=== PATIENT | male | born 1955 | race Caucasian/White ===

== ENCOUNTER 2019-10-22 09:51 | Emergency (ER) | payer MEDICARE, OTHER ==
[2019-10-22] MEDS ORDERED: Albuterol/Ipratropium 3.0-0.5 MG/3 ML Neb Soln NEB PRN ×2 (11:03→11:17)
[2019-10-22] MEDS ORDERED: predniSONE 20 MG Tab PO ONE (11:19)
--- NOTE | 2019-10-22 11:54 | EDM.PDOC ---
ED HPI GENERAL MEDICAL PROBLEM - General Chief Complaint: Respiratory Problem Stated Complaint: asthma Time Seen by Provider: 10/22/19 10:05 Source of Information: Reports: Patient History Limitations: Reports: No Limitations - History of Present Illness INITIAL COMMENTS - FREE TEXT/NARRATIVE: PMH asthma, patient states he has has asthma issues x 1-2 weeks. Has been using his advair and albuterol with minimal relief. Denies any fever, CP, N/V/D, fever, chills. 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 Treatments - Related Data Allergies Allergy/AdvReac Type Severity Reaction Status Date / Time penicillin G Allergy Hives Verified 10/22/19 10:51 Home Meds: Home Meds Albuterol/Ipratropium [DuoNeb 3.0-0.5 MG/3 ML] 3 ml .XX Q6HR #1 neb 10/22/19 [Rx] lisinopriL [Lisinopril] 5 mg PO DAILY 10/22/19 [History] ED ROS GENERAL - Review of Systems Review Of Systems: See Below Constitutional: Reports: No Symptoms HEENT: Reports: No Symptoms Respiratory: Reports: Shortness of Breath, Wheezing Cardiovascular: Reports: No Symptoms, Dyspnea on Exertion Endocrine: Reports: No Symptoms GI/Abdominal: Reports: No Symptoms : Reports: No Symptoms Musculoskeletal: Reports: No Symptoms Skin: Reports: No Symptoms Neurological: Reports: No Symptoms Psychiatric: Reports: No Symptoms Hematologic/Lymphatic: Reports: No Symptoms Immunologic: Reports: No Symptoms ED EXAM, GENERAL - Physical Exam Exam: See Below Exam Limited By: No Limitations General Appearance: Alert, No Apparent Distress Nose: Normal Inspection Throat/Mouth: Normal Inspection Head: Atraumatic Neck: Full Range of Motion Respiratory/Chest: Decreased Breath Sounds, Wheezing Cardiovascular: Normal Peripheral Pulses, No JVD Peripheral Pulses: 3+: Radial (L), Radial (R) GI/Abdominal: Normal Bowel Sounds, Soft Back Exam: Normal Inspection Extremities: Normal Inspection, Normal Capillary Refill Neurological: Alert, Oriented, Normal Reflexes Psychiatric: Normal Affect, Normal Mood Skin Exam: Warm, Dry, Intact Lymphatic: No Adenopathy Course - Orders/Labs/Meds Orders: Active Orders 24 hr Category Date Time Status RT Aerosol Therapy [RC] ASDIRECTED Care 10/22/19 11:03 Active RT Aerosol Therapy [RC] ASDIRECTED Care 10/22/19 11:18 Active Chest 1V Frontal [CR] Stat Exams 10/22/19 11:03 Taken Albuterol/Ipratropium [DuoNeb 3.0-0.5 MG/3 ML] Med 10/22/19 11:17 Active 3 ml NEB Q4H PRN Medication Orders Albuterol/Ipratropium (Duoneb 3.0-0.5 Mg/3 Ml) 3 ml NEB Q4H PRN PRN Reason: Shortness of Breath Labs: Laboratory Tests 10/22/19 Range/Units 10:09 COVID-19 ([facility]) Negative Meds: Medications Generic Name Dose Route Start Last Admin Trade Name Freq PRN Reason Stop Dose Admin Albuterol/Ipratropium 3 ml 10/22/19 11:17 Duoneb 3.0-0.5 Mg/3 Ml NEB Q4H PRN Shortness of Breath Discontinued Medications Generic Name Dose Route Start Last Admin Trade Name Freq PRN Reason Stop Dose Admin Albuterol/Ipratropium 3 ml 10/22/19 11:03 Duoneb 3.0-0.5 Mg/3 Ml NEB Q4H PRN Shortness of Breath Prednisone 40 mg 10/22/19 11:19 Prednisone PO 10/22/19 11:20 ONETIME ONE Departure - Departure Time of Disposition: 12:25 Disposition: Home, Self-Care 01 Condition: Good Clinical Impression: Exacerbation of asthma Qualifiers: Asthma severity: moderate Asthma persistence: unspecified Qualified Code(s): J45.901 - Unspecified asthma with (acute) exacerbation - Discharge Information *PRESCRIPTION DRUG MONITORING PROGRAM REVIEWED*: No *COPY OF PRESCRIPTION DRUG MONITORING REPORT IN PATIENT ARMANDO: No Prescriptions: Albuterol/Ipratropium [DuoNeb 3.0-0.5 MG/3 ML] 3 ml .XX Q6HR #1 neb Instructions: Shortness of Breath, Adult, [id number] Additional Instructions: Use nebs as directed. Follow up with PMD as needed. Return to ED for any increased or new concerning symptoms. - My Orders Last 24 Hours: My Active Orders 10/22/19 11:03 RT Aerosol Therapy [RC] ASDIRECTED Chest 1V Frontal [CR] Stat 10/22/19 11:17 Albuterol/Ipratropium [DuoNeb 3.0-0.5 MG/3 ML] 3 ml NEB Q4H PRN 10/22/19 11:18 RT Aerosol Therapy [RC] ASDIRECTED - Assessment/Plan Last 24 Hours: My Active Orders 10/22/19 11:03 RT Aerosol Therapy [RC] ASDIRECTED Chest 1V Frontal [CR] Stat 10/22/19 11:17 Albuterol/Ipratropium [DuoNeb 3.0-0.5 MG/3 ML] 3 ml NEB Q4H PRN 10/22/19 11:18 RT Aerosol Therapy [RC] ASDIRECTED
[2019-10-22] MEDS ORDERED: Albuterol/Ipratropium 3.0-0.5 MG/3 ML Neb Soln ONE (12:00)
[2019-10-22] MEDS ORDERED: predniSONE 10 MG Tab ONE (12:00)
--- NOTE | 2019-10-23 12:20 | CR ---
DATE OF SERVICE: 10/22/2019 CLINICAL DATA: SOB. AP CHEST: Comparison is made to a prior exam dated 10/19/2006. The patient has taken a poor inspiration. The heart size is normal. The lungs are clear. No pneumothorax. No pleural effusions. No evidence of acute intrathoracic disease. [id number] [facility]
== END 2019-10-22 12:20 | disposition home or self-care (01) ==
LOC: LB.ED 09:51
DX: J45.901 Unspecified asthma with (acute) exacerbation (principal); Z20.828 Contact with and (suspected) exposure to other viral communicable diseases; Z88.0 Allergy status to penicillin
CPT/HCPCS: 71045; 99285; J7512; U0002; 99284; J7620-GY

== ENCOUNTER 2019-10-29 08:32 | Inpatient (IN) | payer MEDICARE ==
[2019-10-29] MEDS: Albuterol/Ipratropium 3.0-0.5 MG/3 ML Neb Soln NEB SCH ×5 (09:34→22:05)
[2019-10-29] MEDS: Magnesium Sulfate/D5W 1 GM/100 ML Premix Bag IV ONE ×2 (10:05→10:37)
[2019-10-29] MEDS ORDERED: methylPREDNISolone Sodium Succinate 125 MG/2 ML SDV IVPUSH ONE (10:16)
--- NOTE | 2019-10-29 10:20 | CR ---
DATE OF SERVICE: 10/29/19 CLINICAL DATA: dyspnea PA AND LATERAL CHEST: Comparison is made to a prior exam dated 10/22/19. The heart size is normal. There is calcification of the aortic arch. The lungs are clear. No pneumothorax. No pleural effusions. No evidence of acute intrathoracic disease. [id number] [facility]
[2019-10-29] MEDS: Magnesium Sulfate/Water 2 GM/50 ML Premix Bag IV SCH (10:30)
[2019-10-29] MEDS: Albuterol 0.083% 2.5 MG/3 ML Neb Soln NEB ONE ×2 (12:08→23:57)
--- NOTE | 2019-10-29 14:08 | EDM.PDOC ---
ED HPI GENERAL MEDICAL PROBLEM - General Chief Complaint: General Stated Complaint: Cough/SOB Time Seen by Provider: 10/29/19 09:40 Source of Information: Reports: Patient History Limitations: Reports: No Limitations - History of Present Illness INITIAL COMMENTS - FREE TEXT/NARRATIVE: increasing SOB since last ED visit 7 days ago. Has used nebs at home without relief. Finished 5 day prednisone course. 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 Treatments - Related Data Allergies Allergy/AdvReac Type Severity Reaction Status Date / Time penicillin G Allergy Hives Verified 10/29/19 09:20 Home Meds: Home Meds Albuterol/Ipratropium [DuoNeb 3.0-0.5 MG/3 ML] 3 ml .XX Q6HR #1 neb 10/22/19 [Rx] lisinopriL [Lisinopril] 5 mg PO DAILY 10/22/19 [History] Past Medical History HEENT History: Reports: Allergic Rhinitis, Other (See Below) Other HEENT History: wears glasses Respiratory History: Reports: Asthma Musculoskeletal History: Reports: Arthritis, Back Pain, Chronic Social & Family History - Family History Family Medical History: Noncontributory - Tobacco Use Smoking Status *Q: Unknown Ever Smoked - Caffeine Use Caffeine Use: Reports: Coffee - Recreational Drug Use Recreational Drug Use: No ED ROS GENERAL - Review of Systems Review Of Systems: See Below Constitutional: Reports: Fever HEENT: Reports: No Symptoms Respiratory: Reports: Shortness of Breath, Wheezing, Cough Cardiovascular: Reports: Dyspnea on Exertion, Orthopnea. Denies: Chest Pain, Edema Endocrine: Reports: No Symptoms GI/Abdominal: Reports: No Symptoms : Reports: No Symptoms Musculoskeletal: Reports: No Symptoms Skin: Reports: No Symptoms Neurological: Reports: No Symptoms Psychiatric: Reports: No Symptoms Hematologic/Lymphatic: Reports: No Symptoms Immunologic: Reports: No Symptoms ED EXAM, GENERAL - Physical Exam Exam: See Below Exam Limited By: No Limitations General Appearance: Alert, Moderate Distress Ears: Normal External Exam Nose: Normal Inspection Throat/Mouth: Normal Inspection, Normal Lips, Normal Voice Head: Atraumatic Neck: Normal Inspection, Full Range of Motion Respiratory/Chest: Respiratory Distress, Decreased Breath Sounds, Wheezing, Prolonged Expiration Cardiovascular: Normal Peripheral Pulses, Regular Rate, Rhythm, No Edema, No JVD, No Murmur Peripheral Pulses: 3+: Radial (L), Radial (R), Posterior Tibial (L), Posterior Tibial (R) GI/Abdominal: Normal Bowel Sounds, Soft, Non-Tender (Male) Exam: Deferred Rectal (Males) Exam: Deferred Back Exam: Normal Inspection, Full Range of Motion Extremities: Normal Inspection, Normal Range of Motion, No Pedal Edema, Normal Capillary Refill Neurological: Alert, Oriented, Normal Cognition, Normal Gait, No Motor/Sensory Deficits Psychiatric: Normal Affect, Normal Mood Skin Exam: Warm, Dry, Intact Lymphatic: No Adenopathy Course - Vital Signs Last Recorded V/S: Last Vital Signs Temp 98.3 F 10/29/19 12:21 Pulse 87 10/29/19 12:21 Resp 18 10/29/19 12:21 BP 134/82 10/29/19 12:21 Pulse Ox 91 L 10/29/19 12:21 - Orders/Labs/Meds Orders: Active Orders 24 hr Category Date Time Status Admission Status [Patient Status] [ADT] Routine ADT 10/29/19 12:21 Active BIPAP Adult [RT BiPAP/CPAP] [RC] ASDIRECTED Care 10/29/19 10:25 Active RT Aerosol Therapy [RC] ASDIRECTED Care 10/29/19 09:31 Active RT Aerosol Therapy [RC] ASDIRECTED Care 10/29/19 11:57 Active Albuterol/Ipratropium [DuoNeb 3.0-0.5 MG/3 ML] Med 10/29/19 09:45 Active 3 ml NEB Q4H Magnesium Sulfate/Water [Magnesium Sulfate in Water Med 10/29/19 10:00 Active Premix] 2 gm IV DAILY Medication Orders Albuterol/Ipratropium (Duoneb 3.0-0.5 Mg/3 Ml) 3 ml NEB Q4H ROEL Last Admin: 10/29/19 10:38 Dose: 3 ml Documented by: Admin: 10/29/19 09:50 Dose: 3 ml Documented by: Admin: 10/29/19 09:34 Dose: 3 ml Documented by: JOSH Magnesium Sulfate (Magnesium Sulfate In Water Premix) 2 gm IV DAILY ROEL Last Admin: 10/29/19 10:30 Dose: Not Given Documented by: JOSH Labs: Laboratory Tests 10/29/19 10/29/19 10/29/19 Range/Units 08:35 12:40 12:40 WBC 7.8 D (4.0-11.0) K/uL RBC 4.52 (4.50-6.50) M/uL Hgb 14.1 (13.0-18.0) g/dL Hct 42.0 (40.0-54.0) % MCV 93 (76-96) fL MCH 31.2 (27.0-32.0) pg MCHC 33.6 (31.0-35.0) g/dL RDW 13.4 (11.0-16.0) % Plt Count 222 D (150-400) K/uL MPV 9.4 (6.0-10.0) fL Neut % (Auto) 83.8 H (45.0-70.0) % Lymph % (Auto) 9.2 L (20.0-40.0) % [place] % (Auto) 3.4 (3.0-10.0) % Eos % (Auto) 3.1 (1.0-5.0) % Baso % (Auto) 0.5 (0.0-0.5) % Neut # (Auto) 6.50 (2.00-7.50) K/uL Lymph # (Auto) 0.71 L (1.50-4.00) K/uL [place] # (Auto) 0.26 (0.20-0.80) K/uL Eos # (Auto) 0.24 (0.04-0.40) K/uL Baso # (Auto) 0.04 (0.02-0.10) K/uL Sodium 140 (136-145) mmol/L Potassium 4.9 (3.5-5.1) mmol/L Chloride 103 (98-107) mmol/L Carbon Dioxide 29.9 (21.0-32.0) mmol/L Anion Gap 12.0 (5.0-15.0) mmol/L BUN 14 (8-26) mg/dL Creatinine 1.09 (0.70-1.30) mg/dL Est Cr Clr Drug Dosing TNP Estimated GFR (MDRD) > 60 (>60) MLS/MIN BUN/Creatinine Ratio 12.8 (6-25) Glucose 126 H D (74-100) mg/dL Calcium 8.5 (8.5-10.1) mg/dL Total Bilirubin 0.5 (0.0-1.0) mg/dL AST 23 (15-37) U/L ALT 51 (12-78) U/L Alkaline Phosphatase 61 (46-116) U/L Total Protein 7.2 (6.4-8.2) g/dL Albumin 3.8 (3.4-5.0) g/dL Globulin 3.4 (2.2-4.2) g/dL Albumin/Globulin Ratio 1.1 (0.8-2.0) SARS CoV-2 RNA Rapid CHATO Negative Meds: Medications Generic Name Dose Route Start Last Admin Trade Name Freq PRN Reason Stop Dose Admin Albuterol/Ipratropium 3 ml 10/29/19 09:45 10/29/19 10:38 Duoneb 3.0-0.5 Mg/3 Ml NEB 3 ml Q4H ROEL Administration Magnesium Sulfate 2 gm 10/29/19 10:00 10/29/19 10:30 Magnesium Sulfate In Water Premix IV Not Given DAILY ROEL Discontinued Medications Generic Name Dose Route Start Last Admin Trade Name Freq PRN Reason Stop Dose Admin Albuterol 2.5 mg 10/29/19 11:56 10/29/19 12:08 Proventil Neb Soln NEB 10/29/19 11:57 2.5 mg ONETIME ONE Administration Magnesium Sulfate/Dextrose 1 gm 10/29/19 09:56 10/29/19 10:37 Magnesium Sulfate In D5w 100 Premix IV 10/29/19 09:57 1 gm ONETIME ONE Administration Methylprednisolone Sodium Succinate 125 mg 10/29/19 10:16 10/29/19 10:24 Solu-Medrol IVPUSH 10/29/19 10:17 125 mg ONETIME ONE Administration Departure - Departure Time of Disposition: 14:00 Disposition: Admitted As Inpatient 64 Clinical Impression: Asthma exacerbation Qualifiers: Asthma severity: moderate Asthma persistence: unspecified Qualified Code(s): J45.901 - Unspecified asthma with (acute) exacerbation - Discharge Information *PRESCRIPTION DRUG MONITORING PROGRAM REVIEWED*: Not Applicable *COPY OF PRESCRIPTION DRUG MONITORING REPORT IN PATIENT ARMANDO: Not Applicable Instructions: Asthma, Adult Referrals: Sheila Pearce RN [Primary Care Provider] - Sepsis Event Note (ED) - Evaluation Sepsis Screening Result: No Definite Risk - Focused Exam Vital Signs: Vital Signs Temp Pulse Resp BP Pulse Ox 10/29/19 12:21 98.3 F 87 18 134/82 91 L 10/29/19 11:56 82 20 92 L 10/29/19 10:39 88 22 H 10/29/19 10:25 86 24 H 160/92 H 100 10/29/19 10:00 32 H 10/29/19 09:40 98.5 F 83 20 156/97 H 97 10/29/19 09:23 98.5 F 84 20 156/97 H 96 - Problem List Review Problem List Initiated/Reviewed/Updated: Yes - My Orders Last 24 Hours: My Active Orders 10/29/19 09:31 RT Aerosol Therapy [RC] ASDIRECTED 10/29/19 09:45 Albuterol/Ipratropium [DuoNeb 3.0-0.5 MG/3 ML] 3 ml NEB Q4H 10/29/19 10:00 Magnesium Sulfate/Water [Magnesium Sulfate in Water Premix] 2 gm IV DAILY 10/29/19 10:25 BIPAP Adult [RT BiPAP/CPAP] [RC] ASDIRECTED 10/29/19 11:57 RT Aerosol Therapy [RC] ASDIRECTED 10/29/19 12:21 Admission Status [Patient Status] [ADT] Routine - Assessment/Plan Last 24 Hours: My Active Orders 10/29/19 09:31 RT Aerosol Therapy [RC] ASDIRECTED 10/29/19 09:45 Albuterol/Ipratropium [DuoNeb 3.0-0.5 MG/3 ML] 3 ml NEB Q4H 10/29/19 10:00 Magnesium Sulfate/Water [Magnesium Sulfate in Water Premix] 2 gm IV DAILY 10/29/19 10:25 BIPAP Adult [RT BiPAP/CPAP] [RC] ASDIRECTED 10/29/19 11:57 RT Aerosol Therapy [RC] ASDIRECTED 10/29/19 12:21 Admission Status [Patient Status] [ADT] Routine Assessment:: 1011 patient has increased RR and work of breathing, lung sounds decreased throughout, tight. Bipap placed, patient tolerating well. Lung sounds improved with wheezing throughout. Duoneb given on Bipap. 1157 patient removed from Bipap, sats 95, moving more air, states he feels better. We discussed admission to hospital, patient is reluctant but agreeable. Plan: patient to be admitted to inpatient for serial nebs and reassessment. Bipap if necessary.
[2019-10-29] MEDS ORDERED: Albuterol 0.083% 2.5 MG/3 ML Neb Soln NEB PRN (15:08)
[2019-10-30] MEDS: Albuterol/Ipratropium 3.0-0.5 MG/3 ML Neb Soln NEB SCH ×3 (01:47→06:58)
[2019-10-30] MEDS: Magnesium Sulfate/Water 2 GM/50 ML Premix Bag IV SCH (10:21)
--- NOTE | 2019-10-30 10:33 | PCM.DCSUM1 ---
Discharge Summary - Hospital Course Free Text/Narrative:: This is a 63yo M with 9yr 2ppd history of smoking from 15-22yrs. 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 - Discharge Data Discharge Date: 10/30/19 Discharge Disposition: Home, Self-Care 01 Condition: Fair - Referral to Home Health Primary Care Physician: Sheila Pearce RN - Patient Instructions Diet: Usual Diet as Tolerated Activity: As Tolerated Activity, Other: Use of PAPR or Respirator for combining or other air particulates - Discharge Plan *PRESCRIPTION DRUG MONITORING PROGRAM REVIEWED*: Not Applicable *COPY OF PRESCRIPTION DRUG MONITORING REPORT IN PATIENT ARMANOD: Not Applicable Prescriptions/Med Rec: Nebulizer Accessories [Adult Aerosol Mask] 1 each ASDIRECTED #1 each Nebulizer Accessories [Air Tube with Air Plugs] 1 each ASDIRECTED #1 each Azithromycin 250 mg PO ASDIRECTED #6 tablet Albuterol/Ipratropium [DuoNeb 3.0-0.5 MG/3 ML] 3 ml NEB Q4H #30 neb Nebulizer and Compressor [My Mdi Portable Nebuliser] 1 each ASDIRECTED #1 each predniSONE [Prednisone] 10 mg PO ASDIRECTED #75 tablet Home Medications: Home Meds Albuterol/Ipratropium [DuoNeb 3.0-0.5 MG/3 ML] 3 ml .XX Q6HR #1 neb 10/22/19 [Rx] lisinopriL [Lisinopril] 5 mg PO DAILY 10/22/19 [History] Fluticasone Propion/Salmeterol [Advair 250-50 Diskus] 1 puff INH DAILY 10/29/19 [History] Albuterol/Ipratropium [DuoNeb 3.0-0.5 MG/3 ML] 3 ml NEB Q4H #30 neb 10/30/19 [Rx] Azithromycin 250 mg PO ASDIRECTED #6 tablet 10/30/19 [Rx] Nebulizer Accessories [Adult Aerosol Mask] 1 each ASDIRECTED #1 each 10/30/19 [Rx] Nebulizer Accessories [Air Tube with Air Plugs] 1 each ASDIRECTED #1 each 10/30/19 [Rx] Nebulizer and Compressor [My Mdi Portable Nebuliser] 1 each ASDIRECTED #1 each 10/30/19 [Rx] predniSONE [Prednisone] 10 mg PO ASDIRECTED #75 tablet 10/30/19 [Rx] Patient Handouts: Asthma, Adult, Azithromycin tablets, Albuterol; Ipratropium solution for inhalation, Prednisone tablets Forms: ED Department Discharge Referrals: Sheila Pearce RN [Primary Care Provider] - - Discharge Summary/Plan Comment DC Time >30 min.: No Discharge Summary/Plan Comment: Counseled on management of COPD. Discussed history of exposure and now worsening breathing due to chronic bronchitis exacerbation. Discussed medication and side effects and f/u in clinic in 1-2 wks as directed. Neb machine and meds Rx sent as well as prednisone taper and Z-zhane. F/u as directed and as needed. Counseled on respiratory health and protection. - General Info Date of Service: 10/30/19 Functional Status: Reports: Tolerating Diet, Ambulating - Review of Systems General: Reports: No Symptoms HEENT: Reports: No Symptoms Pulmonary: Reports: No Symptoms Cardiovascular: Reports: No Symptoms Gastrointestinal: Reports: No Symptoms Genitourinary: Reports: No Symptoms Musculoskeletal: Reports: No Symptoms Skin: Reports: No Symptoms Neurological: Reports: No Symptoms Psychiatric: Reports: No Symptoms - Patient Data Vitals - Most Recent: Last Vital Signs Temp 36.7 C 10/30/19 06:00 Pulse 86 10/30/19 06:00 Resp 18 10/30/19 06:00 BP 131/92 H 10/30/19 06:00 Pulse Ox 95 10/30/19 06:00 Weight - Most Recent: 119.658 kg Lab Results - Last 24 hrs: Laboratory Results - last 24 hr 10/29/19 10/29/19 Range/Units 12:40 12:40 WBC 7.8 D (4.0-11.0) K/uL RBC 4.52 (4.50-6.50) M/uL Hgb 14.1 (13.0-18.0) g/dL Hct 42.0 (40.0-54.0) % MCV 93 (76-96) fL MCH 31.2 (27.0-32.0) pg MCHC 33.6 (31.0-35.0) g/dL RDW 13.4 (11.0-16.0) % Plt Count 222 D (150-400) K/uL MPV 9.4 (6.0-10.0) fL Neut % (Auto) 83.8 H (45.0-70.0) % Lymph % (Auto) 9.2 L (20.0-40.0) % [place] % (Auto) 3.4 (3.0-10.0) % Eos % (Auto) 3.1 (1.0-5.0) % Baso % (Auto) 0.5 (0.0-0.5) % Neut # (Auto) 6.50 (2.00-7.50) K/uL Lymph # (Auto) 0.71 L (1.50-4.00) K/uL [place] # (Auto) 0.26 (0.20-0.80) K/uL Eos # (Auto) 0.24 (0.04-0.40) K/uL Baso # (Auto) 0.04 (0.02-0.10) K/uL Sodium 140 (136-145) mmol/L Potassium 4.9 (3.5-5.1) mmol/L Chloride 103 (98-107) mmol/L Carbon Dioxide 29.9 (21.0-32.0) mmol/L Anion Gap 12.0 (5.0-15.0) mmol/L BUN 14 (8-26) mg/dL Creatinine 1.09 (0.70-1.30) mg/dL Est Cr Clr Drug Dosing TNP Estimated GFR (MDRD) > 60 (>60) MLS/MIN BUN/Creatinine Ratio 12.8 (6-25) Glucose 126 H D (74-100) mg/dL Calcium 8.5 (8.5-10.1) mg/dL Total Bilirubin 0.5 (0.0-1.0) mg/dL AST 23 (15-37) U/L ALT 51 (12-78) U/L Alkaline Phosphatase 61 (46-116) U/L Total Protein 7.2 (6.4-8.2) g/dL Albumin 3.8 (3.4-5.0) g/dL Globulin 3.4 (2.2-4.2) g/dL Albumin/Globulin Ratio 1.1 (0.8-2.0) Med Orders - Current: Current Medications Albuterol (Proventil Neb Soln) 2.5 mg NEB Q4H PRN PRN Reason: Shortness of Breath Albuterol/Ipratropium (Duoneb 3.0-0.5 Mg/3 Ml) 3 ml NEB Q4H [facility] Last Admin: 10/30/19 06:58 Dose: 3 ml Documented by: Discontinued Medications Albuterol (Proventil Neb Soln) 2.5 mg NEB ONETIME ONE Stop: 10/29/19 11:57 Last Admin: 10/29/19 23:57 Dose: Not Given Documented by: Albuterol/Ipratropium (Duoneb 3.0-0.5 Mg/3 Ml) 3 ml NEB Q4H [facility] Last Admin: 10/29/19 10:38 Dose: 3 ml Documented by: Magnesium Sulfate (Magnesium Sulfate In Water Premix) 2 gm IV DAILY [facility] Last Admin: 10/30/19 10:21 Dose: Not Given Documented by: Magnesium Sulfate/Dextrose (Magnesium Sulfate In D5w 100 Premix) 1 gm IV ONETIME ONE Stop: 10/29/19 09:57 Last Admin: 10/29/19 10:37 Dose: 1 gm Documented by: Methylprednisolone Sodium Succinate (Solu-Medrol) 125 mg IVPUSH ONETIME ONE Stop: 10/29/19 10:17 Last Admin: 10/29/19 10:24 Dose: 125 mg Documented by: - Exam General: Reports: Alert, Oriented, Cooperative HEENT: Reports: Pupils Equal, Pupils Reactive, EOMI Neck: Reports: Supple Lungs: Reports: Normal Respiratory Effort, Wheezing Cardiovascular: Reports: Regular Rate, Regular Rhythm GI/Abdominal Exam: Normal Bowel Sounds, Soft, Non-Tender Back Exam: Reports: Normal Inspection Extremities: Normal Inspection Skin: Reports: Warm, Dry, Intact Neurological: Reports: No New Focal Deficit
== END 2019-10-30 12:00 | disposition home or self-care (01) | DRG 192 ==
LOC: LB.ED 08:32 → LB.MS 14:00 → UNDOADMIN 14:00 → LB.MS 15:08
PROVIDERS: ADMIT Nurse Practitioner; ATTEND Nurse Practitioner
DX: J45.901 Unspecified asthma with (acute) exacerbation (principal); J42 Unspecified chronic bronchitis; J45.909 Unspecified asthma, uncomplicated; M19.90 Unspecified osteoarthritis, unspecified site; J30.9 Allergic rhinitis, unspecified; G89.29 Other chronic pain; M54.9 Dorsalgia, unspecified; Z77.110 Contact with and (suspected) exposure to air pollution; Z79.899 Other long term (current) drug therapy; Z88.0 Allergy status to penicillin; Z87.891 Personal history of nicotine dependence; Z20.828 Contact with and (suspected) exposure to other viral communicable diseases; H54.7 Unspecified visual loss
CPT/HCPCS: 36415; 71046; 80053; 85025; 87070; 94640; 96374; 96375; 99285-25; J2930; J3475; J7620-GY; U0002

== ENCOUNTER 2024-05-30 10:14 | Emergency (ER) | payer OTHER, MEDICARE ==
[2024-05-30] MEDS: Albuterol/Ipratropium 3.0-0.5 MG/3 ML Neb Soln NEB ONE ×2 (10:32→11:46)
[2024-05-30 10:51] LABS: BASOPHILS ABSOLUTE AUTO 0.04 K/uL (0.02-0.10); BASOPHILS PERCENT AUTO 0.7 % (0.0-0.5); EOSINOPHILS ABSOLUTE AUTO 0.43 K/uL (0.04-0.40); EOSINOPHILS PERCENT AUTO 7.6 % (1.0-5.0); HEMATOCRIT 41.5 % (40.0-54.0); HEMOGLOBIN 14.1 g/dL (13.0-18.0); LYMPHOCYTES ABSOLUTE AUTO 1.16 K/uL (1.50-4.00); LYMPHOCYTES PERCENT AUTO 20.5 % (20.0-40.0); MEAN CORPUSCULAR HEMOGLOBIN 31.1 pg (27.0-32.0); MEAN CORPUSCULAR VOLUME 92 fL (76-96); MEAN PLATELET VOLUME 9.3 fL (6.0-10.0); MONOCYTES ABSOLUTE AUTO 0.56 K/uL (0.20-0.80); MONOCYTES PERCENT AUTO 9.9 % (3.0-10.0); NEUTROPHILS ABSOLUTE AUTO 3.48 K/uL (2.00-7.50); NEUTROPHILS PERCENT AUTO 61.3 % (45.0-70.0); PLATELET COUNT,PLT 224 K/uL (150-400); RED BLOOD CELL COUNT 4.53 M/uL (4.50-6.50); RED CELL DISTRIBUTION WIDTH 12.9 % (11.0-16.0); WHITE BLOOD CELL COUNT,WBC 5.7 K/uL (4.0-11.0)
[2024-05-30] MEDS: Budesonide 0.25 MG/2 ML Neb Susp NEB ONE (11:02)
[2024-05-30 11:16] LABS: A/G RATIO 1.4 (0.8-2.0); ALBUMIN 3.9 g/dL (3.4-5.0); ANION GAP 9.6 mmol/L (5.0-15.0); BILIRUBIN TOTAL 0.7 mg/dL (0.0-1.0); BUN/CREATININE RATIO 10.1 (6-25); CARBON DIOXIDE,CO2 30.5 mmol/L (21.0-32.0); CREATININE 1.09 mg/dL (0.70-1.30); EST CRCL DRUG DOSING (CG) 69.22 mL/min; POTASSIUM,K 4.1 mmol/L (3.5-5.1); PROTEIN TOTAL,TP 6.6 g/dL (6.4-8.2)
[2024-05-30] MEDS: methylPREDNISolone Sodium Succinate 125 MG/2 ML SDV IVPUSH ONE (11:47)
== END 2024-05-30 12:05 | disposition home or self-care (01) ==
LOC: LB.ED 10:14
DX: J44.1 Chronic obstructive pulmonary disease with (acute) exacerbation (principal); I10 Essential (primary) hypertension; E78.00 Pure hypercholesterolemia, unspecified; E03.9 Hypothyroidism, unspecified; Z87.891 Personal history of nicotine dependence; Z79.899 Other long term (current) drug therapy; Z79.890 Hormone replacement therapy; Z79.82 Long term (current) use of aspirin; Z88.0 Allergy status to penicillin
CPT/HCPCS: 36415; 71046; 80053; 83605; 85025; 96374; 99285-25; A9270-GY; J2919

== ENCOUNTER 2024-10-09 10:20 | Emergency (ER) | payer OTHER | END 2024-10-09 11:14 | disposition home or self-care (01) | LOC: LB.ED 10:20 | DX: R60.0 Localized edema (principal); E03.9 Hypothyroidism, unspecified; I10 Essential (primary) hypertension; Z88.0 Allergy status to penicillin; Z91.041 Radiographic dye allergy status; Z79.899 Other long term (current) drug therapy; Z79.82 Long term (current) use of aspirin; Z79.890 Hormone replacement therapy | CPT/HCPCS: 71045; 99284 ==